=== PATIENT | female | born 1960 | race African-American/Black ===

== ENCOUNTER 2025-03-09 16:20 | Emergency (ER) | payer MEDICARE ==
[~2025-03-09 16:20] MED LIST: Iopamidol 370 76% 100 ML VIAL ONE
== END 2025-03-09 21:09 | disposition home or self-care (01) ==
LOC: ERS 16:20
DX: S00.511A Abrasion of lip, initial encounter (principal); I10 Essential (primary) hypertension; E11.9 Type 2 diabetes mellitus without complications; W18.09XA Striking against other object with subsequent fall, initial encounter; Y93.89 Activity, other specified; Z79.899 Other long term (current) drug therapy; Z79.84 Long term (current) use of oral hypoglycemic drugs
CPT/HCPCS: 70450; 70470; 70486; 72125; Q9967